=== PATIENT | female | born 1995 | race Caucasian/White ===

== ENCOUNTER 2018-02-26 20:59 | Emergency (ER) | payer OTHER ==
--- NOTE | 2018-02-26 21:12 | ED Physician Documentation ---
PD HPI SKIN - Stated complaint Stated Complaint: FACIAL REDNESS,SORENESS - Chief complaint Chief Complaint: Wound - History obtained from History obtained from: Patient - History of Present Illness Timing - onset: How many days ago (2) Timing - duration: Days (2) Timing - details: Gradual onset, Still present Location: Face, Neck Quality / character: Itchy, Burning Review of Systems Constitutional: denies: Fever, Chills Nose: denies: Rhinorrhea / runny nose, Congestion Throat: denies: Sore throat Respiratory: denies: Dyspnea, Cough, Wheezing Skin: reports: Rash (face) PD PAST MEDICAL HISTORY - Past Medical History Cardiovascular: None Respiratory: None Neuro: None - Present Medications Home Medications: Ambulatory Orders Medication Instructions Recorded Confirmed Cetirizine [ZyrTEC] 10 mg PO DAILY #20 tablet 02/26/18 Dexamethasone [Decadron] 4 mg PO DAILY #5 tablet 02/26/18 - Allergies Allergies/Adverse Reactions: Allergies Allergy/AdvReac Type Severity Reaction Status Date / Time No Known Drug Allergies Allergy Verified 02/26/18 21:05 PD ED PE NORMAL - Vitals Vital signs reviewed: Yes - General General: Alert and oriented X 3, No acute distress, Well developed/nourished - HEENT HEENT: Ears normal, Moist mucous membranes, Pharynx benign - Neck Neck: Supple, no meningeal sign, No adenopathy - Cardiac Cardiac: RRR, No murmur - Respiratory Respiratory: No respiratory distress, Clear bilaterally - Derm Derm: Warm and dry, Other (face, mostly left side with pebbly red, slightly raised, nonvesicular rash. It is on left neck some as well. Rest of skin without rash. ) Results - Vitals Vitals: Oxygen O2 Source Room air PD MEDICAL DECISION MAKING - ED course Complexity details: considered differential (could be local reaction but did not have obvious contact source. Thus presume general reaction manifesting on face. ), d/w patient Departure - Departure Disposition: 01 Home, Self Care Clinical Impression: Facial rash Condition: Stable Record reviewed to determine appropriate education?: Yes Instructions: ED Dermatitis Non Specific Rash Follow-Up: SLOANE BURTON [Primary Care Provider] - Prescriptions: Cetirizine [ZyrTEC] 10 mg PO DAILY #20 tablet Dexamethasone [Decadron] 4 mg PO DAILY #5 tablet Comments: This presumably is a sensitivity reaction or allergic reaction. Use cetirizine antihistamine daily for the next week or so. Decadron steroid anti- inflammatory for the next several days until fully improved. Follow-up with your primary care next week as planned. See if they wish to do any allergy testing or such. Discharge Date/Time: 02/26/18 21:53
[2018-02-26] MEDS ORDERED: diphenhydrAMINE 25 MG CAPSULE PO STA (21:34)
[2018-02-26] MEDS ORDERED: DEXAMETHASONE 10 MG/ML VIAL PO STA (21:34)
[2018-02-26] MEDS ORDERED: CETIRIZINE 10 MG TABLET PO STA (21:34)
[2018-02-26] MEDS ORDERED: CHERRY SYRUP 10 ML UDC PO ONE (21:53)
[2018-02-26 21:54] VITALS: BP 121/75
== END 2018-02-26 21:53 | disposition home or self-care (01) ==
LOC: ED 20:59
DX: R21 Rash and other nonspecific skin eruption (principal)
CPT/HCPCS: 99283; A9270